=== PATIENT | male | born 1990 | race Two or more races ===

== ENCOUNTER 2022-06-17 09:07 | Emergency (ER) | payer MEDICAID ==
[~2022-06-17] VITALS: Ht 177.8 cm; Wt 100.0 kg
[2022-06-17 09:29] VITALS: BP 114/69
== END 2022-06-17 11:48 | disposition home or self-care (01) ==
LOC: ER 09:08
DX: M76.62 Achilles tendinitis, left leg (principal)
CPT/HCPCS: 29515; 99283; A6449